=== PATIENT | male | born 1950 | race Caucasian/White ===

== ENCOUNTER 2021-01-03 10:00 | Emergency (ER) | payer MEDICARE, OTHER, SELFPAY ==
--- NOTE | ~2021-01-03 | CT_ITS ---
EXAMINATION: CT abd pelvis lumbar wo con DATE: 01/03/2021 11:03 INDICATION: Left-sided low back pain radiating to the groin. TECHNIQUE: Computed tomography (CT) of the abdomen and pelvis and lumbar spine was performed without intravenous contrast. Automated exposure control and iterative reconstruction technique were employed . The dose-length product was 865.35 mGy-cm. COMPARISON: None FINDINGS: CT ABDOMEN AND PELVIS: The visualized portions of the lung bases demonstrate mild atelectasis. No ple ural effusion. The heart size is normal. There are coronary artery calcifications. No pericardial eff usion. The liver, gallbladder, spleen, pancreas, adrenal glands, and left kidney are normal. There is a 2 mm stone in right kidney. There is diffuse bladder wall thickening, likely secondary to chronic outlet obstruction from the moderately enlarged prostate. There is diverticulosis of the colon withou t evidence of diverticulitis. There are no dilated loops of bowel. The appendix is normal. There are no pathologically enlarged lymph nodes. There is no free intraperitoneal fluid. There is asymmetric f at in the left inguinal canal that may be a hernia. CT LUMBAR SPINE: There are chronic bilateral L5 pars defects. There is 6 mm anterolisthesis of L5 on S1. There is mild chronic anterior wedging of T12 vertebral body. There is mildly decreased disc heig ht from L1-L2 through L3-L4 and moderately decreased disc height at L5-S1. The following disc levels are specifically discussed: L1-L2: The disc is bulging. There is moderate bilateral facet joint osteoarthritis. There is mild judy ateral neural foraminal stenosis. There is mild central canal stenosis. L2-L3: The disc is bulging. There is mild bilateral facet joint osteoarthritis. There is mild bilater al neural foraminal stenosis. There is mild central canal stenosis. L3-L4: The disc is bulging. There is mild bilateral facet joint osteoarthritis. There is mild bilater al neural foraminal stenosis. There is mild central canal stenosis. L4-L5: The disc is bulging. There is moderate bilateral facet joint osteoarthritis. There is mild rig ht and moderate left neural foraminal stenosis. There is moderate central canal stenosis. L5-S1: The disc is bulging. There is moderate bilateral facet joint osteoarthritis. There is moderate right and mild left neural foraminal stenosis. There is mild central canal stenosis. IMPRESSION: 1. Asymmetric fat in the left inguinal canal that may be a hernia. 2. Moderate lumbar spondylosis. Reviewed, dictated and finalized at location A. TAL DESIGNER
[2021-01-03 10:08] VITALS: BP 137/64; PULSE 101; RESP 18; TEMP 36.2; O2SAT 97
--- NOTE | 2021-01-03 10:43 | ED.BACK ---
HPI - Back Pain/Injury General Chief Complaint: Back Pain/Injury Stated Complaint: low back pain Time Seen by Provider: 01/03/21 10:21 Source: patient Mode of arrival: ambulatory Limitations: no limitations History of Present Illness HPI Narrative: This is a 70 year old male that presents to the ER for left-sided low back pain x3 weeks. No recent injury or trauma. Pain is worse with movement and somewhat relieved with rest. He has been taking Tylenol for pain at home. Reports the pain radiates into the groin and down the back of the left leg. Patient does report some nausea with the pain. Denies fever, abdominal pain, vomiting, dysuria, hematuria, weakness, or numbness. Related Data Home Medications Medication Instructions Recorded Confirmed atorvastatin 01/03/21 benazepril 01/03/21 diltiazem HCl PO 01/03/21 metformin mg 01/03/21 Allergies Allergy/AdvReac Type Severity Reaction Status Date / Time Penicillins Allergy Mild Unknown Verified 01/03/21 10:13 Review of Systems Review of Systems: Narrative: CONSTITUTIONAL: Denies fever GASTROINTESTINAL: Denies abdominal pain, nausea, vomiting GENITOURINARY: Denies dysuria or hematuria. SKIN: Denies rash MUSCULOSKELETAL: Reports back pain, joint pain, and myalgia. NEUROLOGIC: Denies numbness, or weakness. All systems reviewed & are unremarkable except as noted in HPI and below PMFSH Past Medical History Medical History (Updated 01/03/21 @ 11:31 by Nani Horton PA-C) History of diabetes mellitus History of hyperlipidemia History of hypertension Social History Social History Gender identity (if verbalized by the patient): Male Exam Narrative: Exam Narrative: GENERAL: Well-appearing, well-nourished, and in no acute distress. HEAD: Normocephalic, atraumatic. EYES: EOMI. CHEST: Clear to auscultation. No respiratory distress. No wheezes rales or rhonchi HEART: Regular rate and rhythm. No murmur heard. Normal peripheral pulses. ABDOMEN: Soft, nondistended, normal active bowel sounds. Mild tenderness to palpation throughout the left side of the abdomen, without guarding. No CVA tenderness EXTREMITIES: Normal range of motion. No edema. Strength equal bilateral lower extremities (5/5) SKIN: Warm, dry, no rash. NEURO: No focal deficits. Alert and oriented x3. Normal gait PSYCH: Normal mood and affect Course Vital Signs Vital signs: Vital Signs Temperature 97.1 F L 01/03/21 10:08 Pulse Rate 101 H 01/03/21 10:08 Respiratory Rate 18 01/03/21 10:08 Blood Pressure 137/64 01/03/21 10:08 Pulse Oximetry 97 01/03/21 10:08 Temperature 97.1 F L 01/03/21 10:08 Pulse Rate 87 01/03/21 10:53 Respiratory Rate 18 01/03/21 10:53 Blood Pressure 108/63 01/03/21 10:53 Pulse Oximetry 96 01/03/21 10:53 MDM - Back Pain/Injury MDM Narrative Medical decision making narrative: Patient presents the emergency department for left-sided low back pain radiating down the leg. He is afebrile and nontoxic-appearing. He is neurologically intact. CBC and metabolic panel without concerning findings. UA without evidence of infection. CT scan of the abdomen/pelvis/lumbar spine shows a possible hernia in the left inguinal canal. This is not the area of patient's pain. Also shows moderate lumbar spondylosis. Suspect this is more likely patient's source of pain. He was instructed to rest and take qovr-urs-mjkkmcl pain medication as needed. Will be prescribed muscle relaxer as needed for pain. We will also be started on steroid taper. He is to follow-up with his primary care doctor. He was given warnings to return to the ER Lab Data Attestation: I reviewed the patient's lab results. Result diagrams: 01/03/21 10:46 01/03/21 10:46 Labs: Lab Results 01/03/21 01/03/21 01/03/21 Range/Units 10:46 10:46 10:54 WBC 7.6 (4.5-10.0) K/mm3 RBC 4.55 L (4.6-6.20) M/mm3 Hgb 15.1 (14.0-18.0) g/dL Hct 44.
[2021-01-03 10:51] LABS: Basophils Percent Auto 0.4 % (0.2-1.2); Eosinophils Absolute Auto 0.1 K/mm3 (0-0.3); Eosinophils Percent Auto 1.2 % (0-4.4); Hematocrit 44.1 % (42.0-52.0); Hemoglobin 15.1 g/dL (14.0-18.0); Immature Granulocyte Absolute 0.02 K/mm3 (0.00-0.031); Immature Granulocyte Percent A 0.3 % (0-0.5); Lymphocytes Absolute Auto 1.45 K/mm3 (0.9-3.2); Lymphocytes Percent Auto 19.2 % (18.3-44.2); Mean Corpuscular HGB Conc 34.2 g/dl (32-36); Mean Corpuscular Hemoglobin 33.2 pg (26-34); Mean Corpuscular Volume 96.9 fl (80-100); Mean Platelet Volume 11.5 fl (7.4-10.4); Monocytes Absolute Auto 0.7 K/mm3 (0.1-0.6); Monocytes Percent Auto 9.8 % (2.6-8.5); Neutrophils Absolute Auto 5.2 K/mm3 (1.3-6.7); Neutrophils Percent Auto 69.1 % (45.5-73.1); Platelet Count Result 186 k/mm3 (150-375); Red Blood Count 4.55 M/mm3 (4.6-6.20); Red Cell Distribution Width 12.9 % (11.5-14.5); White Blood Count 7.6 K/mm3 (4.5-10.0)
[2021-01-03 10:53] VITALS: BP 108/63; PULSE 87; RESP 18; O2SAT 96
[2021-01-03 11:06] LABS: Add Urine Microscopic? YES; Appearance Urine Clear (Clear); Bacteria Urine Trace /hpf; Bilirubin Urine Negative (Negative); Blood Urine Negative (Negative); Color Urine Yellow (Yellow); Glucose Urine UA 1+ mg/dL (Negative); Ketones Urine Negative (Negative); Leukocyte Esterase Ur Negative LEU/UL (Negative); Mucus Urine Rare /lpf; Nitrate Urine Negative (Negative); Protein Urine Negative (Negative); RBC Urine 0-2 /hpf (0-2); Specific Grav Ur 1.021 (1.001-1.035); Urobilinogen Urine Negative mg/dL (<2.0); WBC Urine 0-3 /hpf
[2021-01-03 11:07] LABS: Anion Gap 9 mmol/L (8-16); Blood Urea Nitrogen 15 mg/dL (9-20); Calcium 9.2 mg/dL (8.4-10.2); Carbon Dioxide 23 mmol/L (22-30); Chloride 105 mmol/L (98-107); Estimated CRCL calculation 74 ml/min; Estimated Glomerular Filt Rate > 60; Glucose 177 mg/dL (75-110); Potassium 4.2 mmol/L (3.4-5.0); Sodium 137 mmol/L (137-145)
== END 2021-01-03 11:50 | disposition home or self-care (01) ==
PROVIDERS: Physician Assistant; Emergency Provider Emergency Medicine; PCP Internal Medicine
DX: M54.16 Radiculopathy, lumbar region (principal); E11.9 Type 2 diabetes mellitus without complications; E78.5 Hyperlipidemia, unspecified; I10 Essential (primary) hypertension; M47.816 Spondylosis without myelopathy or radiculopathy, lumbar region; Z79.84 Long term (current) use of oral hypoglycemic drugs
CPT/HCPCS: 36415; 72131; 74176; 80048; 81001; 85025; 99284

== ENCOUNTER → 2021-01-14 07:40 | Outpatient (CLI) | payer MEDICARE, OTHER, SELFPAY ==
--- NOTE | ~2021-01-14 | MR_ITS ---
EXAMINATION: MR lumbar spine wo [facility] EXAM DATE: 01/14/2021 08:22 INDICATION: Low back pain and left leg pain. TECHNIQUE: Multi-sequential, multiplanar MR images of the lumbar spine were obtained without contrast . Sagittal T1, T2, T2 fat saturation images. Axial T2 weighted images. There is no prior study for comparison. FINDINGS: There is chronic bilateral L5 spondylolysis with moderate loss of the L5-S1 disc height. Th ere is 5 mm anterolisthesis L5 on S1. Small annular fissures L4-5 and L5-S1. Mild to moderate loss of the L2-3 disc height, mild at the other lumbar levels. The conus medullaris terminates at the T12-L1 level and has normal signal intensity and morphology. Paraspinal soft tissue is unremarkable. Level by level evaluation: T12-L1: Disc does not extend beyond the endplate margin. Facet arthropathy: Mild. Neural foraminal stenosis: No stenosis. Central canal stenosis: No stenosis. L1-L2: There is a mild diffuse disc bulge. Facet arthropathy: Mild. Neural foraminal stenosis: No stenosis. Central canal stenosis: No stenosis. L2-L3: There is a mild to moderate diffuse disc bulge. Facet arthropathy: Mild. Neural foraminal stenosis: Mild bilateral. Central canal stenosis: Mild. L3-L4: There is a mild diffuse disc bulge. Facet arthropathy: Mild. Neural foraminal stenosis: Mild bilateral. Central canal stenosis: Mild. L4-L5: There is a moderate diffuse disc bulge. Facet arthropathy: Moderate. Substantial ligamentum flavum hypertrophy. Neural foraminal stenosis: Moderate bilateral, left greater than right. Central canal stenosis: Moderate to severe. L5-S1: There is a moderate diffuse disc bulge. Facet arthropathy: Mild . Ligamentum flavum enlargement . Neural foraminal stenosis: Moderate to severe right, mild to moderate left. Central canal stenosis: Mild to moderate. IMPRESSION: 1. L4-5 moderate to severe central canal stenosis, moderate left neural foraminal stenosis. 2. L5 spondylolysis with grade 1 anterolisthesis, moderate to severe right neural foraminal stenosis . 3. Otherwise mild to moderate spondylosis. Reviewed, dictated and finalized at location A. STEWARD IMPRESSION: 1. L4-5 moderate to severe central canal stenosis, moderate left neural forami nal stenosis. 2. L5 spondylolysis with grade 1 anterolisthesis, moderate to severe right artie ral foraminal stenosis. 3. Otherwise mild to moderate spondylosis.
== END ==
PROVIDERS: PCP Internal Medicine
DX: M47.896 Other spondylosis, lumbar region (principal)
CPT/HCPCS: 72148

== ENCOUNTER 2022-03-15 00:04 | Day surgery (SDC) | payer MEDICARE, OTHER, SELFPAY ==
[2022-02-28 15:20] VITALS: BMI 23.8
[2022-03-15 09:02] VITALS: BP 140/88; PULSE 92; RESP 19; TEMP 37; O2SAT 99; BMI 23.9
[2022-03-15] MEDS: LACTATED RINGERS 1,000 ML 150 ML IV CONT (09:25)
--- NOTE | 2022-03-15 09:32 | P.PNAN_ITS ---
Anes - Initial Pre Proc Eval Procedure: Operation Date: 03/15/22 10:30 Proposed Procedures p Esophagogastroduodenoscopy & Screening Colonoscopy - Pedro Bingham MD Date/Time: 03/15/22 09:32 Surgeon: Pedro Cortez MD Pre Op Diagnosis: weight loss, hx of colon polyps Patient Data Age: 71 Gender: M Height: 1.75 m Weight: 73.5 kg Last Vital Signs Temp 37.0 C 03/15/22 09:02 Pulse 92 03/15/22 09:02 Resp 19 03/15/22 09:02 BP 140/88 03/15/22 09:02 Pulse Ox 99 03/15/22 09:02 Allergies Allergy/AdvReac Type Severity Reaction Status Date / Time Penicillins Allergy Mild Unknown Verified 03/15/22 09:12 Home Medications Medication Instructions Recorded Confirmed Type atorvastatin 80 mg PO DAILY 01/03/21 03/15/22 History benazepril 40 mg PO DAILY 01/03/21 03/15/22 History diltiazem HCl 360 mg PO DAILY 01/03/21 03/15/22 History aspirin 162 mg PO DAILY 02/28/22 03/15/22 History cqthokd-vuqkdqukr-wrxg 1 tablet PO DAILY 02/28/22 03/15/22 History coQ10 (ubiquinol) 200 mg PO DAILY 02/28/22 03/15/22 History cyanocobalamin (vitamin B-12) 1,000 mcg SUBLINGUAL DAILY 02/28/22 03/15/22 History [Vitamin B-12] glucos sul 7RTy-tiy-kqsnu-C-Mn 1 cap PO DAILY 02/28/22 03/15/22 History [Glucosamine Chondroitin] omega 3-ris-pml-fish oil [Fish Oil] 1 cap PO DAILY 02/28/22 03/15/22 History zolpidem 12.5 mg PO HS 02/28/22 03/15/22 History Patient hx anesthesia problems: none Family hx anesthesia problems: none Results Review: All pre-operative results and documents have been reviewed as part of the pre-operative evaluation. 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 Substance use: current Substance use type: marijuana Other substance usage details: Daily Living arrangements: with family Gender identity (if verbalized by the patient): Male Anes - Evmarcia Final PreProcedure Day of Procedure 03/15/22 09:32 Patient weight: normal Heart: regular rate and rhythm Lungs: clear to auscultation and normal air movement Airway: Mallampati scale class II Neurological: alert and oriented Last oral intake: >/= 8 hours ASA classification: III Emergent: no Anesthetic plan: proceed Anesthesia type and monitoring: general GIVS and standard monitoring Results Review: All pre-operative results and documents have been reviewed as part of the pre-operative evaluation. Informed Consent: The patient's anesthetic plan and its attendant risks and benefits were discussed with the patient/family/POA. Questions were solicited and answers provided to the satisfaction of the patient/family/POA.
--- NOTE | 2022-03-15 09:41 | PM.HPGS ---
History of Present Illness History of Present Illness Consent: Risks, benefits, and alternatives have been discussed and questions answered. Patient agrees to proceed with procedure. Chief complaint: weight loss, hx of colon polyps Narrative: Duncan Shi is a 71 year old male with weight loss after he received COVID vaccine, denies obvious GI symptoms other than marginal decrease appetite, never had EGD. Last colonoscopy 2017 with TA polyp removed, also mother with colon cancer. Review of Systems Constitutional: Constitutional: Denies headache(s) and Denies weakness Eyes: Eyes: Denies blurry vision ENT: Reports Normal hearing present, Denies headache(s) and Denies neck pain Cardiovascular: Cardiovascular: Denies chest pain and Denies dyspnea Respiratory: Respiratory: Denies dyspnea Gastrointestinal: Gastrointestinal: Reports no additional gastrointestinal complaints Genitourinary: Genitourinary: Denies dysuria Musculoskeletal: Musculoskeletal: Denies neck pain Integumentary/Breasts: Skin/Breast: Denies dry skin Neurologic: Reports Normal hearing present, Denies headache(s) and Denies weakness Psychiatric: Psychiatric: Denies anxiety Endocrine: Endocrine: Denies change in body appearance Hematologic/Lymphatic: Hematologic/Lymphatic: Denies easy bleeding Allergic/Immunologic: Allergic/Immunologic: Denies urticaria PMFSH Past Medical History Medical History (Updated 03/15/22 @ 09:42 by Pedro Cortez MD) Adenomatous colon polyp Atrial fibrillation CVA (cerebral vascular accident) Family history of colon cancer History of diabetes mellitus History of hyperlipidemia History of hypertension Weight loss Social History Social History Years smoked: 6 Smoking status: Current every day smoker Tobacco type: cigars Alcohol intake: former Alcohol use details: Alcoholic, 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 Substance use: current Substance use type: marijuana Other substance usage details: Daily Living arrangements: with family Gender identity (if verbalized by the patient): Male Meds Home Medications and Allergies Home Medications Medication Instructions Recorded Confirmed Type atorvastatin 80 mg PO DAILY 01/03/21 03/15/22 History benazepril 40 mg PO DAILY 01/03/21 03/15/22 History diltiazem HCl 360 mg PO DAILY 01/03/21 03/15/22 History aspirin 162 mg PO DAILY 02/28/22 03/15/22 History rqwrwtm-cqnwwiful-xdhl 1 tablet PO DAILY 02/28/22 03/15/22 History coQ10 (ubiquinol) 200 mg PO DAILY 02/28/22 03/15/22 History cyanocobalamin (vitamin B-12) 1,000 mcg SUBLINGUAL DAILY 02/28/22 03/15/22 History [Vitamin B-12] glucos sul 8EZx-air-biwcs-C-Mn 1 cap PO DAILY 02/28/22 03/15/22 History [Glucosamine Chondroitin] omega 0-nrz-ufq-fish oil [Fish Oil] 1 cap PO DAILY 02/28/22 03/15/22 History zolpidem 12.5 mg PO HS 02/28/22 03/15/22 History Allergies Allergy/AdvReac Type Severity Reaction Status Date / Time Penicillins Allergy Mild Unknown Verified 03/15/22 09:12 Vital Signs Vital Signs - 24 hr 03/15/22 09:02 Temperature 98.6 F Pulse Rate 92 Respiratory Rate 19 Blood Pressure 140/88 Pulse Oximetry 99 Exam Const: General: comfortable and no acute distress HENMT: General nose exam: Normal nares present Eyes: General: appearance normal, both eyes and all related structures Neck: Neck: no JVD Resp: Auscultation: clear to auscultation bilaterally Cardio: Rate: regular rate Rhythm: regular rhythm GI: Inspection: non-distended GI Palp: Yes Soft to palpation Skin: General skin exam: normal color Neuro: General: gait normal Speech: normal speech Extrem: General: normal to inspection Psych: Mental Status: mental status grossly normal Assessment and Plan Assessment and plan (1) Weight loss: Code(s): R63.4 - Abnormal weight loss Status: Acute Assessment and Plan: egd and colonoscopy (2) Adenomatous colon polyp: Code(s):
[2022-03-15 10:21] VITALS: BP 115/73; PULSE 80; RESP 23; O2SAT 97
--- NOTE | 2022-03-15 10:22 | SUR.OPER ---
EGD started at 51 and ended at 0957. Colonoscopy started at 1002 and ended at 1018.
[2022-03-15 10:31] VITALS: BP 118/79; PULSE 75; RESP 16; O2SAT 99
[2022-03-15 10:41] VITALS: BP 135/78; PULSE 75; RESP 14; O2SAT 98
== END 2022-03-15 10:53 | disposition home or self-care (01) ==
PROVIDERS: PCP Internal Medicine; Visit Provider Internal Medicine Gastroenterology
PROC: 0DJ08ZZ Inspection of Upper Intestinal Tract, Via Natural or Artificial Opening Endoscopic (ICD-10-PCS; CPT 43235; principal; 2022-03-15 10:30)
DX: R63.4 Abnormal weight loss (principal); D12.0 Benign neoplasm of cecum; D12.3 Benign neoplasm of transverse colon; K57.30 Diverticulosis of large intestine without perforation or abscess without bleeding; K64.8 Other hemorrhoids; K29.00 Acute gastritis without bleeding; K20.80 Other esophagitis without bleeding; K44.9 Diaphragmatic hernia without obstruction or gangrene; Z80.0 Family history of malignant neoplasm of digestive organs; F17.290 Nicotine dependence, other tobacco product, uncomplicated; F12.90 Cannabis use, unspecified, uncomplicated; I10 Essential (primary) hypertension; E78.5 Hyperlipidemia, unspecified; Z79.82 Long term (current) use of aspirin; Z86.73 Personal history of transient ischemic attack (TIA), and cerebral infarction without residual deficits; Z68.23 Body mass index [BMI] 23.0-23.9, adult
CPT/HCPCS: 45385; 43239; 88305; 88342; J2704; J7120

== ENCOUNTER 2022-05-06 07:34 | Outpatient (CLI) | payer MEDICARE, OTHER, SELFPAY ==
[2022-05-10 21:30] LABS: H pylori Ag Stool Not Detected (Not Detected)
== END 2022-05-06 07:35 | disposition home or self-care (01) ==
LOC: ANHLAB 07:36
PROVIDERS: PCP Internal Medicine; Visit Provider Nurse Practitioner Family
DX: A04.8 Other specified bacterial intestinal infections (principal)
CPT/HCPCS: 87338

== ENCOUNTER 2022-12-16 14:30 | Emergency (ER) | payer MEDICARE, OTHER, SELFPAY ==
--- NOTE | ~2022-12-16 | XR_ITS ---
XR hip RT min 2V DATE: 12/16/2022 16:28 INDICATION: Posterior lateral right hip pain for 3 weeks. No injury. TECHNIQUE: AP and lateral views of right hip COMPARISON: None FINDINGS: No fracture or dislocation, avascular necrosis or bone destruction. Right hip joint space a ppears well preserved. The pubic symphysis and sacral iliac joints appear intact. Degenerative disc disease is noted at the included L4-5 and L5-S1 levels. IMPRESSION: No significant abnormality of right hip Lumbar and lumbosacral degenerative disc disease Reviewed, dictated and finalized at location B. RONMENTAL FIELD PROFESSIONAL
[2022-12-16 14:53] VITALS: BP 158/77; PULSE 86; RESP 16; TEMP 36.6; O2SAT 97
--- NOTE | 2022-12-16 15:56 | ED.EXTPRO ---
HPI - Extremity Problem General Chief complaint: Extremity Problem,Nontraumatic Stated complaint: sciatic nerve pain Time Seen by Provider: 12/16/22 15:31 History of Present Illness HPI Narrative: Patient is a 72-year-old male with history of sciatica here for evaluation of right lower extremity pain. Patient states that he was diagnosed with sciatica several years ago. He has been seeing a pain specialist and has been receiving injections in his low back and hip with transient relief of his symptoms. Patient states that during physical therapy 2 days ago he was lifting a heavy weight and noticed his pain acutely worsened. Since then he has had severe pain, unrelieved by Tylenol or marijuana. He states he has paresthesias that radiate down his inner thigh into his foot. He denies any incontinence or retention of bowel or bladder, pain in his testicles, palpable mass, nausea, vomiting, fevers or saddle anesthesia. Related Data Home Medications Medication Instructions Recorded Confirmed atorvastatin 80 mg tablet 80 mg PO DAILY 01/03/21 03/15/22 benazepril 40 mg tablet 40 mg PO DAILY 01/03/21 03/15/22 diltiazem HCl 360 mg capsule,24 360 mg PO DAILY 01/03/21 03/15/22 hr,extended release aspirin 81 mg tablet 162 mg PO DAILY 02/28/22 03/15/22 tumymxe-ztbsaocce-fjdu tablet 1 tablet PO DAILY 02/28/22 03/15/22 coQ10 (ubiquinol) 200 mg capsule 200 mg PO DAILY 02/28/22 03/15/22 cyanocobalamin (vitamin B-12) 1,000 mcg sublingual DAILY 02/28/22 03/15/22 1,000 mcg sublingual tablet glucosamine sulf dipot 1 cap PO DAILY 02/28/22 03/15/22 chlr,msm,chond 550 mg-C 30 mg-puma 1 mg capsule (Glucosamine Chondroitin) omega 4-dea-tuu-fish oil 1,200 mg 1 cap PO DAILY 02/28/22 03/15/22 (144 mg-216 mg) capsule (Fish Oil) zolpidem 12.5 mg tablet,extended 12.5 mg PO HS 02/28/22 03/15/22 release,multiphase Allergies Allergy/AdvReac Type Severity Reaction Status Date / Time Penicillins Allergy Mild Unknown Verified 12/16/22 16:19 [facility] Past Medical History Medical History Adenomatous colon polyp Atrial fibrillation CVA (cerebral vascular accident) Family history of colon cancer History of diabetes mellitus History of hyperlipidemia History of hypertension Weight loss Social History Social History Years smoked: 6 Smoking status: Current every day smoker Tobacco type: cigars Alcohol intake: former Alcohol use details: Alcoholic, 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 Head: Normocephalic and atraumatic. EYES: PERRLA/EOMI, conjunctivae clear NOSE: No nasal drainage EARS: External ear normal in appearance THROAT: Oropharynx is clear. Mucous membranes are moist. NECK: Supple. No adenopathy, no masses. RESPIRATORY: Airway patent, respirations nonlabored. Clear to auscultation bilaterally, no rales, rhonchi, wheezing. CARDIOVASCULAR: strong dp/pt pulses. Regular rate and rhythm without murmurs, rubs, or gallops. ABDOMINAL: no mass or abnormalities palpated in groin. no testicular pain, swelling or abnormalities palpated. Normoactive bowel sounds. Soft, nontender, nondistended. No rebound tenderness or guarding. MUSCULOSKELETAL: Normal gait. Straight leg raise positive on the right. Normal sensation in foot. No deformity noted to RLE. NEURO: Normal speech. No focal neurologic deficits. SKIN: Skin is warm and dry. No rashes. PSYCHIATRIC: Normal affect/mood. Course Vital Signs Vital signs: Vital Signs Temperature 97.9 F 12/16/22 14:53 Pulse Rate 86 12/16/22 14:53 Respiratory Rate 16 12/16/22 14:53 Blood Pressure 158/77 H 12/16/22 14:53 Pulse Oximetry 97 12/16/22 14:53 Oxygen Delivery Room Air
[2022-12-16] MEDS: predniSONE 20 MG TABLET 40 MG PO (16:17)
[2022-12-16] MEDS: TIZANIDINE HCL 1 MG TABLET PO (16:17)
[2022-12-16] MEDS: MELOXICAM 7.5 MG TABLET PO (16:17)
--- NOTE | 2022-12-16 16:21 | PC.NURSE ---
pt up without assist to wheelchair for radiology. pt ambulatory with no issue and without complaint.
== END 2022-12-16 16:49 | disposition home or self-care (01) ==
PROVIDERS: Emergency Provider Physician Assistant; PCP Internal Medicine
DX: M54.30 Sciatica, unspecified side (principal); I48.91 Unspecified atrial fibrillation; E11.9 Type 2 diabetes mellitus without complications; E78.5 Hyperlipidemia, unspecified; I10 Essential (primary) hypertension; F17.210 Nicotine dependence, cigarettes, uncomplicated; Z86.73 Personal history of transient ischemic attack (TIA), and cerebral infarction without residual deficits
CPT/HCPCS: 73502; 99283; A9270; J7512

== ENCOUNTER 2024-07-18 12:43 | Outpatient (CLI) | payer MEDICARE, OTHER, SELFPAY ==
--- NOTE | 2024-07-18 12:56 | ECG_ITS ---
Test Date: 2024-07-18 13:03:40 Measurements Intervals [place] Rate: 70 P: 19 WI: 195 QRS: -7 QRSD: 140 T: 12 QT: 446 QTc: 483 Interpretive Statements SINUS RHYTHM RIGHT BUNDLE BRANCH BLOCK [120+ ms QRS DURATION, UPRIGHT V1, 40+ ms S IN I/aVL/V4/V5/V6] SEPTAL MYOCARDIAL INFARCTION , OF INDETERMINATE AGE [40+ ms Q WAVE IN V1/V2] No previous ECG available for comparison Electronically Signed On 07-18-2024 15:17:30 CDT by Nano Vega M.D.
== END 2024-07-18 12:44 | disposition home or self-care (01) ==
LOC: ANHLAB 12:47
PROVIDERS: PCP Internal Medicine; Visit Provider Podiatrist Foot & Ankle Surgery
DX: R03.0 Elevated blood-pressure reading, without diagnosis of hypertension (principal); I45.10 Unspecified right bundle-branch block; I21.29 ST elevation (STEMI) myocardial infarction involving other sites
CPT/HCPCS: 93005

== ENCOUNTER 2025-07-03 08:49 | Emergency (ER) | payer MEDICARE, OTHER, SELFPAY ==
--- NOTE | ~2025-07-03 | XR_ITS ---
EXAMINATION: XR chest 2V DATE: 07/03/2025 09:24 INDICATION: Right anterior chest pain TECHNIQUE: PA and lateral views of the chest were obtained. COMPARISON: None FINDINGS: Mild eventration along the anterior right hemidiaphragm. No focal airspace opacities, pulmonary edema , pleural effusion or pneumothorax. The cardiomediastinal silhouette is normal. There are bridging os teophytes at multiple levels consistent with diffuse idiopathic skeletal hyperostosis (DISH). IMPRESSION: 1. Mild eventration along the right hemidiaphragm. No acute cardiopulmonary disease. Reviewed, dictated and finalized at location A. IMPRESSION: 1. Mild eventration along the right hemidiaphragm. No acute cardiopulmonary dis ease.
--- NOTE | 2025-07-03 09:01 | ED.ABDPAIN ---
HPI - Abdominal Pain General Chief Complaint: Unspecified Stated Complaint: R Side Pain Time Seen by Provider: 07/03/25 09:02 Source: patient Mode of arrival: ambulatory Limitations: no limitations History of Present Illness HPI narrative: 74 y/o male presented for c/o right sided chest pain. Says this is intermittent for several months. Pt plays golf 4 times a week. He performs exercises and takes 4 Tylenol prior during and after golfing, as well as smokes marijuana at night which does reduce the pain. Today the pain was a sharp stabbing pain which caused him to have a cold sweat. Denies any palpitations, dizziness, n/v, abdominal pain. Denies specific injury. Pt smokes cigars. Related Data Home Medications ?Medication ?Instructions ?Recorded ?Confirmed ?Last Taken ?Type atorvastatin 80 mg tablet 80 mg PO DAILY 01/03/21 07/03/25 Unknown History benazepril 40 mg tablet 40 mg PO DAILY 01/03/21 07/03/25 Unknown History diltiazem HCl 360 mg capsule,24 360 mg PO DAILY 01/03/21 07/03/25 Unknown History hr,extended release aspirin 81 mg tablet 162 mg PO DAILY 02/28/22 07/03/25 Unknown History tikgbbq-bvqvksbdd-lneu tablet 1 tablet PO DAILY 02/28/22 07/03/25 Unknown History coQ10 (ubiquinol) 200 mg capsule 200 mg PO DAILY 02/28/22 07/03/25 Unknown History cyanocobalamin (vitamin B-12) 1,000 mcg sublingual DAILY 02/28/22 07/03/25 Unknown History 1,000 mcg sublingual tablet omega 5-flc-atq-fish oil 1,200 mg 1 cap PO DAILY 02/28/22 07/03/25 Unknown History (144 mg-216 mg) capsule (Fish Oil) amlodipine 2.5 mg tablet mg 07/03/25 Unknown History Allergies Allergy/AdvReac Type Severity Reaction Status Date / Time Penicillins Allergy Mild Unknown Verified 07/03/25 09:04 Review of Systems Review of Systems: CONSTITUTIONAL: Denies body aches, fever, chills, or sweats. EYES: Denies visual changes, redness, or discharge. ENT: Denies rhinorrhea, congestion, sore throat, or otalgia. CARDIOVASCULAR: Reports chest pain, Denies palpitations, or edema. RESPIRATORY: Denies cough or dyspnea. GASTROINTESTINAL: Denies abdominal pain, nausea, vomiting, or diarrhea. GENITOURINARY: Denies dysuria or hematuria. SKIN: Denies rash, itching, or wounds. MUSCULOSKELETAL: Denies back pain, joint pain NEUROLOGIC: Denies headache, numbness, tingling, or weakness. PSYCH: Denies depression or anxiety. 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 Please see nursing chart for further information. There is no relevant family history pertinent to the presenting complaint Exam Narrative: GENERAL: Well-appearing EYES: EOMI. No redness or drainage. Conjunctivae normal. ENT: Mucous membranes pink and moist. No rhinorrhea. TMs normal bilaterally. Throat normal. Uvula midline. NECK: Normal AROM. Supple. No lymphadenopathy. CHEST: No respiratory distress. Clear to auscultation. HEART: Regular rate and rhythm. No murmur appreciated. Normal peripheral pulses. ABDOMEN: Soft, nontender, nondistended, normal active bowel sounds. MUSCULOSKELETAL: Right anterior/lateral chest tender with palpation to 6-8 rib area. no bruising swelling or rash. EXTREMITIES: Normal range of motion. No edema. SKIN: Warm, dry, no rash. Capillary refill normal. Normal skin turgor. NEURO: No focal deficits. Alert and oriented x3. Gait steady. PSYCH: Normal affect. Course Course Emergency Course: Patient is aware of diagnosis, understands and agrees to treatment plan. Anticipatory guidance given. Patient agrees to follow-up as directed and is aware of reasons to seek care at the emergency department. Portions of this record may have been created with voice recognition software Level of Care: Express Care Visit MDM - Abdominal Pain MDM Narrative Medical decision making narrative: Discussed physical exam findings and CXR. Reviewed RX. Advised supportive measures and signs/symptoms to go to the ER. Pt is appropriate for outpt treatment and f/u. Differential Diagnosis Differential diagnosis: Likely other (Rib fracture, pneumomediastinum, pneumopericardium, bronchial injury, hemothorax, pulmonary contusion, cardiac contusion, tracheal injury, pneumothorax, zoster, musculoskeletal pain) Imaging Data Radiologist's impression: Patient: Duncan Shi : 1950 MR#: [id number] Age: 74 Acct:[id number] Loc: [id number] ADM Date: 07/03/25Attending Dr: Ordering Physician: Mayda Baldwin APRN Date of Service: 07/03/25 Procedure(s): XR chest 2V Accession Number(s): [id number] cc: Evin, Juan Vale MD; Mayda Baldwin APRN~ EXAMINATION: XR chest 2V DATE: 07/03/2025 09:24 INDICATION: Right anterior chest pain TECHNIQUE: PA and lateral views of the chest were obtained. COMPARISON: None FINDINGS: Mild eventration along the anterior right hemidiaphragm. No focal airspace opacities, pulmonary edema, pleural effusion or pneumothorax. The cardiomediastinal silhouette is normal. There are bridging osteophytes at multiple levels consistent with diffuse idiopathic skeletal hyperostosis (DISH). IMPRESSION: 1. Mild eventration along the right hemidiaphragm. No acute cardiopulmonary disease. Discharge Plan Discharge Clinical Impression: Intermittent right-sided chest pain Patient Disposition: Home Condition: Stable Instructions: Antibiotic Form, Musculoskeletal Pain (ED) Additional Instructions: Rest. Avoid pushing, pulling, lifting, twisting or anything that worsens the symptoms Tylenol 1000mg every 8 hours as needed You can alternate with ibuprofen 600mg Take the steroid as directed Alternate ice/heat to the site. Lidocaine or salon pas pain patch or use pain cream like icy/hot or biofreeze. Follow up with your primary care provider in 1 week Go to the ER for worsening symptoms or concerns Patient Language: Swedish Prescriptions: New methylprednisolone [Medrol (Peng)] 4 mg tablets,dose pack See Rx Instructions .ROUTE .COMPLEX Qty: 21 0RF Rx Instructions: orally per package directions No Action amlodipine 2.5 mg tablet atorvastatin 80 mg tablet 80 mg PO DAILY diltiazem HCl 360 mg capsule,extended release 24 hr 360 mg PO DAILY benazepril 40 mg tablet 40 mg PO DAILY hkpqheh-uixgcfkap-cdad Tablet 1 tablet PO DAILY aspirin 81 mg Tablet 162 mg PO DAILY cyanocobalamin (vitamin B-12) [Vitamin B-12] 1,000 mcg Tablet, Sublingual 1,000 mcg SUBLINGUAL DAILY omega 0-hbk-bco-fish oil [Fish Oil] 1,200 (144-216) mg Capsule 1 cap PO DAILY coQ10 (ubiquinol) 200 mg Capsule 200 mg PO DAILY Follow-up/Referrals: Evin,Jan Vale MD [Primary Care Provider] - Time of Disposition: 09:46
[2025-07-03 09:03] VITALS: BP 127/72; PULSE 71; RESP 16; TEMP 36.6; O2SAT 97
== END 2025-07-03 09:52 | disposition home or self-care (01) ==
PROVIDERS: Emergency Provider Nurse Practitioner Family; PCP Internal Medicine
DX: R07.89 Other chest pain (principal); F17.290 Nicotine dependence, other tobacco product, uncomplicated; F12.90 Cannabis use, unspecified, uncomplicated; I48.91 Unspecified atrial fibrillation; Z86.73 Personal history of transient ischemic attack (TIA), and cerebral infarction without residual deficits; E11.9 Type 2 diabetes mellitus without complications; I10 Essential (primary) hypertension; E78.5 Hyperlipidemia, unspecified; Z79.82 Long term (current) use of aspirin
CPT/HCPCS: 71046; 99213; G0463

== ENCOUNTER 2025-09-28 08:44 | Emergency (ER) | payer MEDICARE, OTHER, SELFPAY ==
[2025-09-28 08:58] VITALS: BP 128/67; PULSE 77; RESP 16; TEMP 36.1; O2SAT 99
--- NOTE | 2025-09-28 09:14 | ED.SKABFB ---
HPI - Skin/Abscess/Foreign Bdy General Chief complaint: Skin/Abscess/Foreign Body Stated complaint: CYST ON R EAR Time Seen by Provider: 09/28/25 09:10 Source: patient Mode of arrival: ambulatory Limitations: no limitations History of Present Illness HPI narrative: Duncan is a 74-year-old female patient presenting to the clinic today with complaints of a cyst on his right posterior auricle. First noticed this 3 days ago while golfing. States the area is tender to touch. No fevers, chills, body aches. Has not taken anything for his symptoms. Related Data Home Medications ?Medication ?Instructions ?Recorded ?Confirmed ?Last Taken ?Type atorvastatin 80 mg tablet 80 mg PO DAILY 01/03/21 09/28/25 Unknown History benazepril 40 mg tablet 40 mg PO DAILY 01/03/21 09/28/25 Unknown History diltiazem HCl 360 mg capsule,24 360 mg PO DAILY 01/03/21 09/28/25 Unknown History hr,extended release aspirin 81 mg tablet 162 mg PO DAILY 02/28/22 09/28/25 Unknown History jnxzmgk-ortruachh-hewd tablet 1 tablet PO DAILY 02/28/22 09/28/25 Unknown History coQ10 (ubiquinol) 200 mg capsule 200 mg PO DAILY 02/28/22 09/28/25 Unknown History cyanocobalamin (vitamin B-12) 1,000 mcg sublingual DAILY 02/28/22 09/28/25 Unknown History 1,000 mcg sublingual tablet omega 2-xqh-efp-fish oil 1,200 mg 1 cap PO DAILY 02/28/22 09/28/25 Unknown History (144 mg-216 mg) capsule (Fish Oil) amlodipine 2.5 mg tablet 2.5 mg 07/03/25 Unknown History Allergies Allergy/AdvReac Type Severity Reaction Status Date / Time Penicillins Allergy Mild Unknown Verified 09/28/25 08:57 Review of Systems Review of Systems: Pertinent positives per HPI. Patient denies any fever, chills, rash, headache, visual changes, dizziness, cough, runny nose, sore throat, shortness of breath, chest pain, palpitations, nausea, vomiting, diarrhea, constipation, abdominal pain, or any urinary issues. 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 There is no relevant family history pertinent to the patient complaint. Exam Narrative: General: Well-developed, well nourished, in no apparent distress Head: Normocephalic, atraumatic. Cardio: Regular rate and rhythm, s1 and s2 normal, no murmur appreciated. Resp: Clear to auscultation bilaterally, no rhonchi, rales, wheezing or rubs. Integumentary: [place], warm, and dry, 2 x 2 cm cyst to the right posterior auricle, tenderness to palpation with fluctuance. Course Course Emergency Course: Portions of this record may have been created with voice recognition software. Level of Care: Express Care Visit Vital Signs Vital signs: Vital Signs Temperature 36.1 C L 09/28/25 08:58 Pulse Rate 77 09/28/25 08:58 Respiratory Rate 16 09/28/25 08:58 Blood Pressure 128/67 09/28/25 08:58 Pulse Oximetry 99 09/28/25 08:58 Temperature 36.1 C L 09/28/25 08:58 Pulse Rate 77 09/28/25 08:58 Respiratory Rate 16 09/28/25 08:58 Blood Pressure 128/67 09/28/25 08:58 Pulse Oximetry 99 09/28/25 08:58 Vital signs reviewed Procedures Abscess I/D Right posterior auricle: Date of Incision: 09/28/25 Side (if applicable): right Technique: needle aspiration Amount of fluid expressed (mL): 1 Irrigation: No Packing used?: none I&D Results: Blood and Other (serous fluid) Complications: other (none) Abcess I&D Additional Comments: Incision and drainage of right posterior auricle cyst performed in the clinic. Patient gave verbal consent. Area was cleansed with Betadine. An 18 gauge needle was then used to insert into the cyst cavity and approximately 1 mL of serous/bloody/cloudy fluid was aspirated. Wound culture was obtained and sent to the lab. Patient tolerated procedure well. Triple antibiotic ointment was placed over wound. MDM - Skin/Abscess/Foreign Bdy MDM Narrative Medical decision making narrative: At the time of visit patient is resting comfortably on the exam table. Patient appears to be nontoxic. complaints of a cyst on his right posterior auricle. First noticed this 3 days ago while golfing. States the area is tender to touch. No fevers, chills, body aches. Has not taken anything for his symptoms. On exam patient has a 2 x 2 cm cyst to the right posterior auricle, tenderness to palpation with fluctuance. Offered needle aspiration and patient agrees to procedure. Procedures: Incision and drainage of right posterior auricle cyst performed in the clinic. Patient gave verbal consent. Area was cleansed with Betadine. An 18 gauge needle was then used to insert into the cyst cavity and approximately 1 mL of serous/bloody/cloudy fluid was aspirated. Wound culture was obtained and sent to the lab. Patient tolerated procedure well. Triple antibiotic ointment was placed over wound. Plan: I suspect patient has a right posterior auricle cyst. Wound culture was sent to the lab. We will send in prescription for doxycycline to cover for infection. Supportive measures were discussed with the patient and they voiced understanding discharge instructions and agrees to treatment plan. Return precautions reviewed Differential Diagnosis Differential diagnosis: Likely abscess of skin or subcutaneous tissue and other (Auricle cyst) Discharge Plan Discharge Clinical Impression: Auricular cyst Patient Disposition: Home Condition: Stable Instructions: Antibiotic Form, Cyst (ED) Additional Instructions: Incision and drainage was performed Wound culture was sent to the lab Take doxycycline as prescribed Keep area clean and dry May take Tylenol/Motrin as needed for pain Follow-up with your PCP for a wound check in 3-5 days. Patient Language: [place] Prescriptions: New doxycycline monohydrate 100 mg capsule 100 mg PO BID 7 Days Qty: 14 0RF No Action amlodipine 2.5 mg tablet 2.5 mg atorvastatin 80 mg tablet 80 mg PO DAILY diltiazem HCl 360 mg capsule,extended release 24 hr 360 mg PO DAILY benazepril 40 mg tablet 40 mg PO DAILY bswqupd-zawludmuw-jfwf Tablet 1 tablet PO DAILY aspirin 81 mg Tablet 162 mg PO DAILY cyanocobalamin (vitamin B-12) [Vitamin B-12] 1,000 mcg Tablet, Sublingual 1,000 mcg SUBLINGUAL DAILY omega 7-kfc-ufo-fish oil [Fish Oil] 1,200 (144-216) mg Capsule 1 cap PO DAILY coQ10 (ubiquinol) 200 mg Capsule 200 mg PO DAILY Follow-up/Referrals: Evin,Jan Vale MD [Primary Care Provider] Time of Disposition: 09:39 Quality NIHSS Nursing Documentation ED NIHSS nursing documentation: reviewed/agree
== END 2025-09-28 09:45 | disposition home or self-care (01) ==
PROVIDERS: Emergency Provider Nurse Practitioner Family; PCP Internal Medicine
DX: L72.8 Other follicular cysts of the skin and subcutaneous tissue (principal); I48.91 Unspecified atrial fibrillation; E11.9 Type 2 diabetes mellitus without complications; I10 Essential (primary) hypertension; E78.5 Hyperlipidemia, unspecified; F17.290 Nicotine dependence, other tobacco product, uncomplicated; F12.90 Cannabis use, unspecified, uncomplicated; Z86.73 Personal history of transient ischemic attack (TIA), and cerebral infarction without residual deficits; Z79.82 Long term (current) use of aspirin
CPT/HCPCS: 10160; 87070; 87205; 99213; G0463